=== PATIENT | male | born 1955 | race Caucasian/White ===

== ENCOUNTER → 2017-07-18 | Outpatient (CLI) | payer OTHER ==
[~2017-07-18] MED LIST: ALBU1AER9 INH; AMT10 PO; ANSHCCR/ TOP; ATV/1 PO; CHOL400C7 PO; COEN1CAP28 PO; CRFL PO; CRS/10 PO; CYCL10TA6 PO; DEXT5LIQ23 PO; FLVHFA110 INH; HYDR12.56 PO; MULTTAB PO; NXM/40 PO; PSEU60TA80 PO; PSYL55.43 PO; RANI300T2 PO; VITA400C15 PO
--- NOTE | 2017-07-18 11:40 | DIAGNOSTIC IMAGING REPORT ---
(BARIUM SWALLOW) ESOPHAGUS CLINICAL HISTORY: Chest discomfort after eating. Reflux. COMPARISON STUDY: Upper GI series 03/13/2009. FLUOROSCOPY TIME: 1 minute.. FINDINGS: 21 fluoroscopic spot images submitted. The patient swallowed barium without difficulty. The esophagus is normal in course, caliber, and motility. No hiatus hernia. No gastroesophageal reflux. The contours of the hypopharynx are within normal limits. The barium tablet passed without difficulty. IMPRESSION: Normal barium swallow. Electronically signed by: Oneal Zavaleta M.D. 07/18/2017 11:38 AM Dictated Date/Time: 07/18/2017 11:35 AM
== END ==
LOC: C.RAD 10:48
PROVIDERS: ATTEND Nurse Practitioner Family
DX: K20.9 Esophagitis, unspecified (principal); R07.89 Other chest pain

== ENCOUNTER → 2017-08-06 | Outpatient (CLI) | payer OTHER ==
--- NOTE | 2017-08-06 14:03 | DIAGNOSTIC IMAGING REPORT ---
R KNEE 4 OR MORE VIEWS CLINICAL HISTORY: BURSITIS OF RIGHT KNEE pain COMPARISON: None. DISCUSSION: The bones and joint spaces appear intact. There is no evidence of fracture, dislocation or bony disease. There is no evidence for soft tissue swelling. IMPRESSION: Negative study. The above report was generated using voice recognition software. It may contain grammatical, syntax or spelling errors. Electronically signed by: Trung Reddy M.D. 08/06/2017 2:01 PM Dictated Date/Time: 08/06/2017 2:01 PM
== END | disposition home or self-care (01) ==
LOC: C.LAB 13:41
PROVIDERS: ATTEND Family Medicine
DX: M70.51 Other bursitis of knee, right knee (principal)

== ENCOUNTER 2022-01-12 14:16 | Inpatient (IN) ==
[2022-01-12] MEDS ORDERED: SODIUM CHLORIDE 0.9% 1000ML 1,000 ML IV ONE (14:51)
--- NOTE | 2022-01-12 14:55 | Emergency Department Note ---
Impression & Plan Acute hyponatremia, Back pain, Lower urinary tract symptoms (LUTS) ED Provider Note NAME: PHANI FRANCISCO AGE: 66 SEX: M : 1955 ARRIVES VIA: Walk-In INFORMANT: Patient ED PROVIDER(S): Te Barker DO CHIEF COMPLAINT: pelvic pain HPI: Patient is a 66-year-old male with a past medical history of ankylosing spondylitis that presents the ER for pain in his rectum which he feels as though it is radiating up anteriorly into his lower pelvic/abdomen region. He denies any nausea or vomiting with this. This started about 10 days ago. He saw his PCP who placed him on Cipro. He took this for 3 days and he started having shaking consequently he stopped it. He was not restarted on any medications. He denies any pain with bowel movements. He does have trouble starting and stopping stream which is new but no other dysuria, urgency, or frequency. No other exacerbating or remitting factors. He notes he did not sleep last night as the pain was severe in his back. ROS: See above HPI for pertinent positives & negatives. A total of 10 systems reviewed and were otherwise negative. PAST MEDICAL HISTORY:See Below PAST SURGICAL HISTORY:See Below FAMILY HISTORY:See Below SOCIAL HISTORY:See Below HOME MEDICATIONS:See Below ALLERGIES:See Below VITALS:See Below PHYSICAL EXAMINATION: GENERAL: Sitting up in bed, alert, well appearing, well nourished, no distress, non-toxic EYE EXAM: normal conjunctiva. OROPHARYNX: mucous membranes are moist NECK: supple, no nuchal rigidity, no adenopathy, non-tender LUNGS: Clear to auscultation. Normal chest wall mechanics HEART: no murmurs, S1 normal and S2 normal ABDOMEN: abdomen soft, non-tender, normo-active bowel sounds, no masses, no rebound or guarding. : Normal external genitalia. Testicles are nontender. No penile drainage or discharge. UPPER EXTREMITIES: upper extremities are grossly normal. LOWER EXTREMITIES: No pitting edema. NEURO EXAM: Normal sensorium, cranial nerves II-XII grossly intact, normal speech, no gross weakness of arms, no gross weakness of legs. MEDICAL DECISION MAKING: Patient is an anxious 66-year-old male who presents ER for above-stated complaint. IV was established blood work was obtained. Labs show no significant leukocytosis. No anemia. BMP with him moderate hyponatremia 128 down from 138. Hypokalemia 3.2. LFTs bilirubin was unremarkable. Lipase was normal. UA was clean. He has recently on antibiotics and took [address] abdomen pelvis shows inflammation around the bladder as well as the kidneys. Question if this is a pyelonephritis which is partially treated giving us a sterile urine. Cannot be certain at this point. Given 2 g of Rocephin. He was concerned with the pain that he was having last night and he was unable to sleep. He was given IV Dilaudid. I discussed with him at bedside and he would prefer to stay at this point discussed with Dr. Weller from the hospital service. Triage Nursing notes reviewed. Limited review of prior medical records performed Vital Signs: reviewed and remarkable for HTN Differential diagnosis: Differential diagnoses includes but is not limited to gastritis, peptic ulcer disease, GERD, gallbladder disease, pancreatitis, small bowel obstruction, acute coronary syndrome, pericarditis, ischemic bowel, irritable bowel disease, irritable bowel syndrome, appendicitis, diverticulitis, malignancy, hernia, urinary tract infection, torsion, perforation, trauma, infectious. ER treatment provided: See below Diagnostics interpreted by me: ECG: none Cardiac Monitoring: An order was placed for continuous cardiac monitoring. The monitor shows a rate of 60 with sinus rhythm. Laboratory studies: As stated above and show below. Imaging studies: CT from pelvis as described above Consultation(s): Discussed with Dr. Lopez for further evaluation Procedures: none Critical Care: None Past Med/Surg History Medical History [facility] arthritis GERD (gastroesophageal reflux disease) Hyperlipidemia Hypertension Right calf pain Surgical History H/O meniscectomy of right knee Family History Other Cancer Heart disease Social History Smoking Status: Never smoker Preferred Language: Pashto Feels Safe at Home: Yes Allergies Allergies Allergy/AdvReac Type Severity Reaction Status Date / Time morphine Allergy Intermediate GI SYMPTOMS Verified 08/22/21 23:17 Sulfa (Sulfonamide Allergy Intermediate RASH Verified 08/22/21 23:17 Antibiotics) codeine AdvReac Intermediate NAUSEA/VOMI Verified 08/22/21 23:17 TING Home Meds Home Medications Medication Instructions Recorded Confirmed ascorbic acid (vitamin C) 500 mg 500 mg PO QDL 06/16/20 01/12/22 tablet (Vitamin C) celecoxib 200 mg capsule 200 mg PO QAM 06/16/20 01/12/22 famotidine 40 mg tablet 20 mg PO AMHS 06/16/20 01/12/22 hydrochlorothiazide 12.5 mg capsule 12.5 mg PO QAM 06/16/20 01/12/22 multivitamin 1 tab PO QDL 06/16/20 01/12/22 rosuvastatin 10 mg tablet 10 mg PO HS 06/16/20 01/12/22 lorazepam 1 mg tablet 0.5 - 1 mg PO BID PRN Anxiety 08/22/21 01/12/22 tramadol 50 mg tablet 50 mg PO Q6H PRN Pain, Severe 08/22/21 01/12/22 adalimumab 40 mg/0.8 mL 40 mg subcut .EVERY 14 DAYS 01/12/22 01/12/22 subcutaneous pen kit (Humira Pen) azelastine 137 mcg (0.1 %) nasal See Rx Instructions .Route .COMPLEX 01/12/22 01/12/22 spray aerosol bisacodyl 5 mg tablet 5 mg PO DAILY PRN Constipation 01/12/22 01/12/22 cholecalciferol (vitamin D3) 50 50 mcg PO DAILY 01/12/22 01/12/22 mcg (2,000 unit) tablet (Vitamin D3) diclofenac sodium 1 % topical gel 2 g topical QID 01/12/22 01/12/22 duloxetine 30 mg capsule,delayed 30 mg PO QAM 01/12/22 01/12/22 release esomeprazole magnesium 20 mg 20 mg PO DAILYBB 01/12/22 01/12/22 capsule,delayed release ibuprofen 125 mg-acetaminophen 250 2 tab PO HS 01/12/22 01/12/22 mg tablet (Advil Dual Action) levothyroxine 112 mcg tablet 112 mcg PO DAILYBB 01/12/22 01/12/22 mometasone 50 mcg/actuation nasal 2 spray intranasal BID 01/12/22 01/12/22 spray trazodone 50 mg tablet 50 mg PO HS 01/12/22 01/12/22 Results & Data (ED) Vital Signs Vital Signs - 24 hr 01/12/22 14:30 01/12/22 15:20 01/12/22 15:51 Temperature 37.0 C Temperature Source Temporal Artery Scan Pulse Rate 55 L 62 Pulse Rate [Right] 60 Respiratory Rate 18 18 18 Respiratory Effort / Characteristics Non-Labored Spontaneous Respiratory Depth Normal Respiratory Pattern Regular Blood Pressure 155/71 H Blood Pressure [Right Arm] 147/64 H Blood Pressure Mean 99 Blood Pressure Mean [Right Arm] 91 Pulse Oximetry 97 100 98 Oxygen Delivery Method Room Air Room Air Room Air Sepsis Recent Fever Within 48 Hours No Sepsis New/Unexplained Change in Mental Status No Sepsis Action Taken by Nursing No Action Required Laboratory Data Result diagrams: 01/12/22 15:02 01/12/22 15:02 Lab Results 01/12/22 01/12/22 01/12/22 Range/Units 15:02 15:02 15:02 WBC 5.55 (4.8-10.8) K/ul RBC 4.33 L (4.63-6.08) M/uL Hgb 13.6 L (14.0-18.0) g/dl Hct 37.5 L (40.1-51.0) % MCV 86.6 (80.0-100.0) fL MCH 31.4 (25.0-34.0) pg MCHC 36.3 H (32.0-36.0) g/dL RDW Std Deviation 41.6 (36.4-46.3) fL RDW Coeff of Ravi 13.3 (11.5-14.5) % Plt Count 166 (130-400) K/uL MPV 10.7 (9.4-12.4) fL Immature Gran % (Auto) 0.4 % Neut % (Auto) 61.8 % Lymph % (Auto) 25.6 % [place] % (Auto) 10.6 % Eos % (Auto) 0.9 % Baso % (Auto) 0.7 % Neut # (Auto) 3.43 (1.4-6.5) K/uL Lymph # (Auto) 1.42 (1.2-3.4) K/uL [place] # (Auto) 0.59 (0.24-0.82) K/uL Eos # (Auto) 0.05 (0-0.50) K/uL Baso # (Auto) 0.04 (0-0.2) K/uL Immature Gran # (Auto) 0.02 (0.00-0.02) K/uL Sodium 128 L (136-145) mmol/L Potassium 3.2 L (3.5-5.1) mmol/L Chloride 93 L (98-107) mmol/L Carbon Dioxide 28 (21-32) mmol/L Anion Gap 7 (3-11) BUN 10 (6-23) mg/dl Creatinine 0.82 (0.6-1.4) mg/dl Est Cr Clr Drug Dosing 90.4 ml/min Est GFR ( Amer) 106.1 ml/min Est GFR (Non-Af Amer) 91.5 ml/min BUN/Creatinine Ratio 12.2 (10-20) Glucose 115 H (70-99(Fasting)) mg/dl Calcium 9.4 (8.5-10.1) mg/dl Magnesium (1.7-2.4) mg/dl Total Bilirubin 0.8 (0.2-1.0) mg/dl AST 15 (13-39) U/L ALT 15 (7-52) U/L Alkaline Phosphatase 63 (34-104) U/L Total Protein 6.8 (6.0-8.3) gm/dl Albumin 4.6 (3.4-5.0) gm/dl Globulin 2.2 L (2.5-4.0) gm/dl Albumin/Globulin Ratio 2.1 H (0.9-2) Lipase 19 (11-82) U/L Urine Color Yellow Urine Appearance Clear (Clear) Urine pH 7.0 (4.5-7.5) Ur Specific [place] 1.006 (1.000-1.030) Urine Protein Negative (Negative) Urine Glucose (UA) Negative (Negative) Urine Ketones Negative (Negative) Urine Blood Negative (Negative) Urine Nitrite Negative (Negative) Urine Bilirubin Negative (Negative) Urine Urobilinogen Negative (Negative) Ur Leukocyte Esterase Negative (Negative) 01/12/22 Range/Units 15:02 WBC (4.8-10.8) K/ul RBC (4.63-6.08) M/uL Hgb (14.0-18.0) g/dl Hct (40.1-51.0) % MCV (80.0-100.0) fL MCH (25.0-34.0) pg MCHC (32.0-36.0) g/dL RDW Std Deviation (36.4-46.3) fL RDW Coeff of Ravi (11.5-14.5) % Plt Count (130-400) K/uL MPV (9.4-12.4) fL Immature Gran % (Auto) % Neut % (Auto) % Lymph % (Auto) % [place] % (Auto) % Eos % (Auto) % Baso % (Auto) % Neut # (Auto) (1.4-6.5) K/uL Lymph # (Auto) (1.2-3.4) K/uL [place] # (Auto) (0.24-0.82) K/uL Eos # (Auto) (0-0.50) K/uL Baso # (Auto) (0-0.2) K/uL Immature Gran # (Auto) (0.00-0.02) K/uL Sodium (136-145) mmol/L Potassium (3.5-5.1) mmol/L Chloride (98-107) mmol/L Carbon Dioxide (21-32) mmol/L Anion Gap (3-11) BUN (6-23) mg/dl Creatinine (0.6-1.4) mg/dl Est Cr Clr Drug Dosing ml/min Est GFR ( Amer) ml/min Est GFR (Non-Af Amer) ml/min BUN/Creatinine Ratio (10-20) Glucose (70-99(Fasting)) mg/dl Calcium (8.5-10.1) mg/dl Magnesium 1.8 (1.7-2.4) mg/dl Total Bilirubin (0.2-1.0) mg/dl AST (13-39) U/L ALT (7-52) U/L Alkaline Phosphatase (34-104) U/L Total Protein (6.0-8.3) gm/dl Albumin (3.4-5.0) gm/dl Globulin (2.5-4.0) gm/dl Albumin/Globulin Ratio (0.9-2) Lipase (11-82) U/L Urine Color Urine Appearance (Clear) Urine pH (4.5-7.5) Ur Specific [place] (1.000-1.030) Urine Protein (Negative) Urine Glucose (UA) (Negative) Urine Ketones (Negative) Urine Blood (Negative) Urine Nitrite (Negative) Urine Bilirubin (Negative) Urine Urobilinogen (Negative) Ur Leukocyte Esterase (Negative) Administered Medications Discontinued Medications Sodium Chloride (Nss 1000ml) 1,000 mls @ 999 mls/hr IV .Q1H1M ONE Stop: 01/12/22 15:51 Last Infusion: 01/12/22 16:05 Dose: 0 mls/hr Documented By: Admin: 01/12/22 15:05 Dose: 999 mls/hr Documented By: QGV Ceftriaxone Sodium (Rocephin) 2,000 mg in 70 mls @ 140 mls/hr IV NOW STA Stop: 01/12/22 17:25 Last Infusion: 01/12/22 18:17 Dose: 0 mls/hr Documented By: Admin: 01/12/22 17:16 Dose: 140 mls/hr Documented By: QGV Ioversol (Ioversol 350 Mg 100ml Prefilled Syringe) 89 ml IV ONCE ONE Stop: 01/12/22 16:13 Last Admin: 01/12/22 16:12 Dose: 89 ml Documented By: SOFIAK Ondansetron HCl (Ondansetron Inj 2 Mg/Ml 2 Ml Vial) 4 mg IV NOW STA Stop: 01/12/22 17:28 Last Admin: 01/12/22 17:31 Dose: Not Given Documented By: FREEDOM Potassium Chloride (Potassium Chloride Crtab 20 Meq Tabcr) 40 meq PO NOW STA Stop: 01/12/22 16:58 Last Admin: 01/12/22 17:16 Dose: 40 meq Documented By: QGV Tramadol HCl (Tramadol Hcl 50 Mg Tablet) 50 mg PO NOW STA Stop: 01/12/22 17:24 Last Admin: 01/12/22 17:31 Dose: Not Given Documented By: FREEDOM Imaging Data Radiologist's Impression: Abdomen/Pelvis CT 01/12/22 14:[address] WITH IV CONTRAST CT DOSE: 492.41 mGy.cm HISTORY: lower pelvic pain/ prostate pain sent by pcp TECHNIQUE: Multiaxial CT images of the abdomen and pelvis were performed following the use of intravenous contrast. A dose lowering technique was util ized adhering to the principles of ALARA. COMPARISON STUDY: Abdomen and pelvis CT 05/15/2008. FINDINGS: The lung bases are clear. No pneumoperitoneum. No pneumatosis. Mild to moderate disc space narrowing at L5-S1. No fractures within the visualized osseous structures. There is a small fat-containing umbilical hernia. The liver, gallbladder, spleen, adrenal glands, and pancreas unremarkable. The main portal vein is patent. Normal caliber abdominal aorta with mild calcified plaque. No retroperitoneal or pelvic lymphadenopathy. There is a 9 mm hypodense lesion within the upper pole of the right kidney. This is technically too small to characterize but favors a cyst. There is mild bilateral perinephric edema/fat stranding with subtle heterogeneous enhancement within the kidneys. No hydronephrosis. Mild bladder wall thickening with adjacent fat stranding. This favors a mild cystitis. No bowel wall thickening or obstruction. Colonic diverti culosis. No evidence for acute diverticulitis. Moderate well-formed stool within the majority of the colon. Normal appendix. IMPRESSION: 1. Mild bladder wall thickening with adjacent fat stranding. This likely represents a mild cystitis. Recommend correlation with urinalysis. 2. Mild bilateral perinephric edema/fat stranding with subtle heterogeneous enhancement within the kidneys. This raises the possibility of a superimposed pyelonephritis. This can also be assessed with a urinalysis. 3. No bowel wall thickening or obstruction. 4. Normal appendix. 5. Colonic diverticulosis. No evidence for acute diverticulitis. ACT 112: Negative or not required by law. Electronically signed by: Oneal Zavaleta M.D. 01/12/2022 4:28 PM Discharge Plan Visit Data Chief Complaint: Groin Pain Stated Complaint: GROIN PAIN, ED Provider: Te Barker Discharge Problem: Acute hyponatremia, Back pain, Lower urinary tract symptoms (LUTS) Forms Stand Alone Forms: [employer] Prescriptions Prescriptions: No Action tramadol 50 mg tablet 50 mg PO Q6H PRN (Reason: Pain, Severe) lorazepam 1 mg tablet 0.5 - 1 mg PO BID PRN (Reason: Anxiety) duloxetine 30 mg capsule,delayed release(DR/EC) 30 mg PO QAM trazodone 50 mg tablet 50 mg PO HS esomeprazole magnesium 20 mg capsule,delayed release(DR/EC) 20 mg PO DAILYBB cholecalciferol (vitamin D3) [Vitamin D3] 50 mcg (2,000 unit) Tablet 50 mcg PO DAILY mometasone 50 mcg/actuation spray,non-aerosol 2 spray INTRANASAL BID Rx Instructions: 2 squirts each nostril ywic a day. May use in conjunction with Astelin spray Advil Dual Action 125-250 mg Tablet 2 tab PO HS levothyroxine 112 mcg tablet 112 mcg PO DAILYBB Rx Instructions: take at least 30 minutes prior to breakfast or other meds Humira Pen 40 mg/0.8 mL pen injector kit 40 mg SUBCUT .EVERY 14 DAYS azelastine 137 mcg (0.1 %) aerosol,spray See Rx Instructions .ROUTE .COMPLEX Rx Instructions: intranasally as directed bisacodyl 5 mg Tablet 5 mg PO DAILY PRN (Reason: Constipation) diclofenac sodium [Voltaren] 1 % Gel 2 g TOPICAL QID multivitamin Tablet 1 tab PO QDL celecoxib 200 mg capsule 200 mg PO QAM famotidine 40 mg tablet 20 mg PO AMHS Rx Instructions: 1/2 tablet dose ascorbic acid (vitamin C) [Vitamin C] 500 mg Tablet 500 mg PO QDL hydrochlorothiazide 12.5 mg capsule 12.5 mg PO QAM rosuvastatin 10 mg tablet 10 mg PO HS Referrals Referrals: Abhay Lopez MD [Primary Care Provider] -
[2022-01-12 15:23] LABS: Basophils # (auto) 0.04 K/uL (0-0.2); Basophils % (auto) 0.7 %; Eosinophils # (auto) 0.05 K/uL (0-0.50); Eosinophils % (auto) 0.9 %; Hematocrit (blood only) 37.5 % (40.1-51.0); Hemoglobin 13.6 g/dl (14.0-18.0); Immature Granulocytes # (auto) 0.02 K/uL (0.00-0.02); Immature Granulocytes % (auto) 0.4 %; Lymphocytes # (auto) 1.42 K/uL (1.2-3.4); Lymphocytes % (auto) 25.6 %; Mean Corpuscular Hemoglobin 31.4 pg (25.0-34.0); Mean Corpuscular Hgb Conc 36.3 g/dL (32.0-36.0); Mean Corpuscular Volume 86.6 fL (80.0-100.0); Mean Platelet Volume 10.7 fL (9.4-12.4); Monocytes # (auto) 0.59 K/uL (0.24-0.82); Monocytes % (auto) 10.6 %; Neutrophils # (auto) 3.43 K/uL (1.4-6.5); Neutrophils % (auto) 61.8 %; Platelet Count 166 K/uL (130-400); RDW Coefficient of Variation 13.3 % (11.5-14.5); RDW Standard Deviation 41.6 fL (36.4-46.3); Red Blood Count 4.33 M/uL (4.63-6.08); White Blood Count 5.55 K/ul (4.8-10.8)
[2022-01-12 15:30] LABS: Appearance Urine Clear (Clear); Bilirubin Urine Negative (Negative); Blood Urine Negative (Negative); Color Urine Yellow; Glucose Urine UA Negative (Negative); Ketones Urine Negative (Negative); Leukocyte Esterase Urine Negative (Negative); Nitrite Urine Negative (Negative); Protein Urine Negative (Negative); Specific Gravity Urine 1.006 (1.000-1.030); Urobilinogen Urine Negative (Negative)
[2022-01-12 15:44] LABS: Albumin Globulin Ratio 2.1 (0.9-2); Albumin Level 4.6 gm/dl (3.4-5.0); BUN Creatinine Ratio 12.2 (10-20); Bilirubin,Total 0.8 mg/dl (0.2-1.0); Calcium 9.4 mg/dl (8.5-10.1); Creatinine Clr Calc Pharmacy 90.4 ml/min; Est GFR (African American) 106.1 ml/min; Est GFR (Non-African American) 91.5 ml/min; Globulin 2.2 gm/dl (2.5-4.0); Potassium 3.2 mmol/L (3.5-5.1); Total Protein 6.8 gm/dl (6.0-8.3)
[2022-01-12] MEDS ORDERED: IOVERSOL 350 MG 100mL Prefilled Syringe IV ONE (16:12)
--- NOTE | 2022-01-12 16:31 | CT Scan Report ---
ABDOMEN AND PELVIS CT WITH IV CONTRAST CT DOSE: 492.41 mGy.cm HISTORY: lower pelvic pain/ prostate pain sent by pcp TECHNIQUE: Multiaxial CT images of the abdomen and pelvis were performed following the use of intrave nous contrast. A dose lowering technique was utilized adhering to the principles of ALARA. COMPARISON STUDY: Abdomen and pelvis CT 05/15/2008. FINDINGS: The lung bases are clear. No pneumoperitoneum. No pneumatosis. Mild to moderate disc space narrowing at L5-S1. No fractures within the visualized osseous structures. There is a small fat-conta ining umbilical hernia. The liver, gallbladder, spleen, adrenal glands, and pancreas unremarkable. Th e main portal vein is patent. Normal caliber abdominal aorta with mild calcified plaque. No retroperi toneal or pelvic lymphadenopathy. There is a 9 mm hypodense lesion within the upper pole of the right kidney. This is technically too small to characterize but favors a cyst. There is mild bilateral per inephric edema/fat stranding with subtle heterogeneous enhancement within the kidneys. No hydronephro sis. Mild bladder wall thickening with adjacent fat stranding. This favors a mild cystitis. No bowel wall thickening or obstruction. Colonic diverticulosis. No evidence for acute diverticulitis. Moderat e well-formed stool within the majority of the colon. Normal appendix. IMPRESSION: 1. Mild bladder wall thickening with adjacent fat stranding. This likely represents a mild cystitis. Recommend correlation with urinalysis. 2. Mild bilateral perinephric edema/fat stranding with subtle heterogeneous enhancement within the ki dneys. This raises the possibility of a superimposed pyelonephritis. This can also be assessed with a urinalysis. 3. No bowel wall thickening or obstruction. 4. Normal appendix. 5. Colonic diverticulosis. No evidence for acute diverticulitis. ACT 112: Negative or not required by law. Electronically signed by: Oneal Zavaleta M.D. 01/12/2022 4:28 PM
[2022-01-12] MEDS ORDERED: cefTRIAXone SODIUM 2,000 MG/70 ML BAG IV STA (16:56)
[2022-01-12] MEDS ORDERED: POTASSIUM CHLORIDE CRTAB 20 MEQ TABCR PO STA (16:57)
[2022-01-12] MEDS ORDERED: ONDANSETRON INJ 2 MG/ML 2 ML VIAL IV STA ×2 (17:21→17:27)
[2022-01-12] MEDS ORDERED: traMADol HCL 50 MG TABLET PO STA (17:23)
[2022-01-12] MEDS ORDERED: HYDROmorphone INJ 0.5 MG/0.5 ML SYR IV STA (17:27)
--- NOTE | 2022-01-12 18:20 | History & Physical Report ---
Date of Service January 12, 2022 Assessment & Plan (1) Cystitis: Plan: Poss. partially treated pyelonephritis Pt presents with severe suprapubic tenderness Previously treated with ciprofloxacin, took for 3 days UA currently negative, however CT abdomen pelvis concerning for cystitis, pyelonephritis In the ED patient started on ceftriaxone, will continue Await urine culture Of note, patient should not be on fluoroquinolone in addition to Celebrex, this was discussed with his corsetier as outpatient Ankylosing spondylitis -Follows with rheumatology, Dr. Vanegas -Started Humira in November, next dose planned for January 16 -July need to further discuss with rheumatology if patient can continue this as planned Hyponatremia -Current sodium 128 -Previous sodium 138 back in July 2021 -Patient is on HCTZ, will hold -Obtain urine osmolality and urine sodium -Received normal saline IV fluids in ED -Recheck BMP in the morning Hypokalemia -Replace and monitor Hypothyroidism Continue home levothyroxine 112 MCG Check TSH, T4 HLD - cont. home statin Anxiety/ Depression -Patient just started on Cymbalta -Per it has been helpful, and wish to continue this medication RAHEEM on CPAP - to bring home cpap History of Present Illness Chief Complaint: groin pain, urinary discomfort Primary Care Provider: Abhay Lopez MD Mr. Couch is a 66 yo M w/ hypothyroidism, hyperlipidemia, sleep apnea on CPAP, GERD, ankylosing spondylitis on Humira, who presents with groin pain, and urinary symptoms. Patient first had some pelvic discomfort and difficulty with urination about a week ago. At that time he was prescribed p.o. ciprofloxacin. He took ciprofloxacin for 3 days, and then developed tremors. Therefore he stopped the medication. It was also discussed with his corsetier, Dr. 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 Patient follows with rheumatology for ankylosing spondylitis, and recently started on Humira. He had his first injection in November, and he is due January 16 again. He was then off antibiotics, however now developed severe "groin pain". Denies any fevers or chills, chest pain shortness of breath, abdominal pain, nausea vomiting or diarrhea. He has difficulty with starting urination. In the ED UA was obtained and not consistent with UTI, however CT abdomen pelvis was also obtained and is concerning for cystitis, pyelonephritis. Patient was started on IV ceftriaxone. In the ED patient was also found to have low sodium level at 128 and he was given IV normal saline. Lastly patient does have anxiety/depression and recently was started on Cymbalta. Per , this medication has been helpful and she would like us to continue this med while inpt. Allergies Allergy/AdvReac Type Severity Reaction Status Date / Time morphine Allergy Intermediate GI SYMPTOMS Verified 08/22/21 23:17 Sulfa (Sulfonamide Allergy Intermediate RASH Verified 08/22/21 23:17 Antibiotics) codeine AdvReac Intermediate NAUSEA/VOMI Verified 08/22/21 23:17 TING Home Medications Medication Instructions Recorded Confirmed Type ascorbic acid (vitamin C) 500 mg 500 mg PO QDL 06/16/20 01/12/22 History tablet (Vitamin C) celecoxib 200 mg capsule 200 mg PO QAM 06/16/20 01/12/22 History famotidine 40 mg tablet 20 mg PO AMHS 06/16/20 01/12/22 History hydrochlorothiazide 12.5 mg capsule 12.5 mg PO QAM 06/16/20 01/12/22 History multivitamin 1 tab PO QDL 06/16/20 01/12/22 History rosuvastatin 10 mg tablet 10 mg PO HS 06/16/20 01/12/22 History lorazepam 1 mg tablet 0.5 - 1 mg PO BID PRN Anxiety 08/22/21 01/12/22 History tramadol 50 mg tablet 50 mg PO Q6H PRN Pain, Severe 08/22/21 01/12/22 History adalimumab 40 mg/0.8 mL 40 mg subcut .EVERY 14 DAYS 01/12/22 01/12/22 History subcutaneous pen kit (Humira Pen) azelastine 137 mcg (0.1 %) nasal See Rx Instructions .Route .COMPLEX 01/12/22 01/12/22 History spray aerosol bisacodyl 5 mg tablet 5 mg PO DAILY PRN Constipation 01/12/22 01/12/22 History cholecalciferol (vitamin D3) 50 50 mcg PO DAILY 01/12/22 01/12/22 History mcg (2,000 unit) tablet (Vitamin D3) diclofenac sodium 1 % topical gel 2 g topical QID 01/12/22 01/12/22 History duloxetine 30 mg capsule,delayed 30 mg PO QAM 01/12/22 01/12/22 History release esomeprazole magnesium 20 mg 20 mg PO DAILYBB 01/12/22 01/12/22 History capsule,delayed release ibuprofen 125 mg-acetaminophen 250 2 tab PO HS 01/12/22 01/12/22 History mg tablet (Advil Dual Action) levothyroxine 112 mcg tablet 112 mcg PO DAILYBB 01/12/22 01/12/22 History mometasone 50 mcg/actuation nasal 2 spray intranasal BID 01/12/22 01/12/22 History spray trazodone 50 mg tablet 50 mg PO HS 01/12/22 01/12/22 History Past Med/Surg History Medical History [facility] arthritis GERD (gastroesophageal reflux disease) Hyperlipidemia Hypertension Right calf pain Surgical History H/O meniscectomy of right knee Family History Other Cancer Heart disease Social History Smoking Status: Never smoker Preferred Language: Japanese Feels Safe at Home: Yes Review of Systems Review of Systems: All systems reviewed & are unremarkable except as noted in HPI & below Physical Exam Constitutional: WD/WN, vitals as above Eyes: PERRL, conjunctivae normal, anicteric sclerae ENMT: external ear and nose normal, oropharynx normal Neck: trachea midline, no thyromegaly Respiratory: normal respiratory effort, lungs clear to auscultation Cardiovascular: RRR, no murmur, no edema Chest (Breasts): Chest: normal inspection of chest Gastrointestinal (Abdomen): normal bowel sounds, soft, nontender, no hepatosplenomegaly (+ suprapubic tenderness) Musculoskeletal: no cyanosis or clubbing, extremities motor strength 5/5 Skin: no rashes, warm and dry Neurologic: PERRL, EOMI, accommodation nl, no face palsy, no dysarthria Psychiatric: A+Ox3, euthymic affect Genitourinary: no CVA tenderness (+ suprapubic tenderness) Lymphatic: no lymphedema Results & Data Results & Data ([facility]) Vital Signs (Past 12 Hours) Vital Signs Temp Pulse Pulse Resp BP BP Pulse Ox 01/12/22 15:51 60 18 147/64 H 98 01/12/22 15:20 62 18 100 01/12/22 14:30 37.0 C 55 L 18 155/71 H 97 O2 Del Method 01/12/22 15:51 Room Air 01/12/22 15:20 Room Air 01/12/22 14:30 Room Air Laboratory Results 01/12/22 01/12/22 01/12/22 Range/Units 15:02 15:02 15:02 WBC (4.8-10.8) K/ul RBC (4.63-6.08) M/uL Hgb (14.0-18.0) g/dl Hct (40.1-51.0) % MCV (80.0-100.0) fL MCH (25.0-34.0) pg MCHC (32.0-36.0) g/dL RDW Std Deviation (36.4-46.3) fL RDW Coeff of Ravi (11.5-14.5) % Plt Count (130-400) K/uL MPV (9.4-12.4) fL Immature Gran % (Auto) % Neut % (Auto) % Lymph % (Auto) % [place] % (Auto) % Eos % (Auto) % Baso % (Auto) % Neut # (Auto) (1.4-6.5) K/uL Lymph # (Auto) (1.2-3.4) K/uL [place] # (Auto) (0.24-0.82) K/uL Eos # (Auto) (0-0.50) K/uL Baso # (Auto) (0-0.2) K/uL Immature Gran # (Auto) (0.00-0.02) K/uL Sodium 128 L (136-145) mmol/L Potassium 3.2 L (3.5-5.1) mmol/L Chloride 93 L (98-107) mmol/L Carbon Dioxide 28 (21-32) mmol/L Anion Gap 7 (3-11) BUN 10 (6-23) mg/dl Creatinine 0.82 (0.6-1.4) mg/dl Est Cr Clr Drug Dosing 90.4 ml/min Est GFR ( Amer) 106.1 ml/min Est GFR (Non-Af Amer) 91.5 ml/min BUN/Creatinine Ratio 12.2 (10-20) Glucose 115 H (70-99(Fasting)) mg/dl Calcium 9.4 (8.5-10.1) mg/dl Magnesium 1.8 (1.7-2.4) mg/dl Total Bilirubin 0.8 (0.2-1.0) mg/dl AST 15 (13-39) U/L ALT 15 (7-52) U/L Alkaline Phosphatase 63 (34-104) U/L Total Protein 6.8 (6.0-8.3) gm/dl Albumin 4.6 (3.4-5.0) gm/dl Globulin 2.2 L (2.5-4.0) gm/dl Albumin/Globulin Ratio 2.1 H (0.9-2) Lipase 19 (11-82) U/L Urine Color Yellow Urine Appearance Clear (Clear) Urine pH 7.0 (4.5-7.5) Ur Specific [place] 1.006 (1.000-1.030) Urine Protein Negative (Negative) Urine Glucose (UA) Negative (Negative) Urine Ketones Negative (Negative) Urine Blood Negative (Negative) Urine Nitrite Negative (Negative) Urine Bilirubin Negative (Negative) Urine Urobilinogen Negative (Negative) Ur Leukocyte Esterase Negative (Negative) 01/12/22 Range/Units 15:02 WBC 5.55 (4.8-10.8) K/ul RBC 4.33 L (4.63-6.08) M/uL Hgb 13.6 L (14.0-18.0) g/dl Hct 37.5 L (40.1-51.0) % MCV 86.6 (80.0-100.0) fL MCH 31.4 (25.0-34.0) pg MCHC 36.3 H (32.0-36.0) g/dL RDW Std Deviation 41.6 (36.4-46.3) fL RDW Coeff of Ravi 13.3 (11.5-14.5) % Plt Count 166 (130-400) K/uL MPV 10.7 (9.4-12.4) fL Immature Gran % (Auto) 0.4 % Neut % (Auto) 61.8 % Lymph % (Auto) 25.6 % [place] % (Auto) 10.6 % Eos % (Auto) 0.9 % Baso % (Auto) 0.7 % Neut # (Auto) 3.43 (1.4-6.5) K/uL Lymph # (Auto) 1.42 (1.2-3.4) K/uL [place] # (Auto) 0.59 (0.24-0.82) K/uL Eos # (Auto) 0.05 (0-0.50) K/uL Baso # (Auto) 0.04 (0-0.2) K/uL Immature Gran # (Auto) 0.02 (0.00-0.02) K/uL Sodium (136-145) mmol/L Potassium (3.5-5.1) mmol/L Chloride (98-107) mmol/L Carbon Dioxide (21-32) mmol/L Anion Gap (3-11) BUN (6-23) mg/dl Creatinine (0.6-1.4) mg/dl Est Cr Clr Drug Dosing ml/min Est GFR ( Amer) ml/min Est GFR (Non-Af Amer) ml/min BUN/Creatinine Ratio (10-20) Glucose (70-99(Fasting)) mg/dl Calcium (8.5-10.1) mg/dl Magnesium (1.7-2.4) mg/dl Total Bilirubin (0.2-1.0) mg/dl AST (13-39) U/L ALT (7-52) U/L Alkaline Phosphatase (34-104) U/L Total Protein (6.0-8.3) gm/dl Albumin (3.4-5.0) gm/dl Globulin (2.5-4.0) gm/dl Albumin/Globulin Ratio (0.9-2) Lipase (11-82) U/L Urine Color Urine Appearance (Clear) Urine pH (4.5-7.5) Ur Specific [place] (1.000-1.030) Urine Protein (Negative) Urine Glucose (UA) (Negative) Urine Ketones (Negative) Urine Blood (Negative) Urine Nitrite (Negative) Urine Bilirubin (Negative) Urine Urobilinogen (Negative) Ur Leukocyte Esterase (Negative) Diagnostic Findings CT abd/pelvis IMPRESSION: 1. Mild bladder wall thickening with adjacent fat stranding. This likely represents a mild cystitis. Recommend correlation with urinalysis. 2. Mild bilateral perinephric edema/fat stranding with subtle heterogeneous enhancement within the kidneys. This raises the possibility of a superimposed pyelonephritis. This can also be assessed with a urinalysis. 3. No bowel wall thickening or obstruction. 4. Normal appendix. 5. Colonic diverticulosis. No evidence for acute diverticulitis. Code Status & VTE Plan VTE Prophylaxis Plan VTE Prophylaxis will be ordered: Yes
[2022-01-12] MEDS: ACETAMINOPHEN 325 MG TAB PO PRN (22:59)
[2022-01-12] MEDS: FAMOTIDINE 20 MG TAB PO SCH (22:59)
[2022-01-12] MEDS: ROSUVASTATIN CALCIUM 10 MG TAB PO SCH (22:59)
[2022-01-13] MEDS: LEVOTHYROXINE SODIUM 112 MCG TABLET PO SCH (05:49)
[2022-01-13 06:00] LABS: Hematocrit (blood only) 37.7 % (40.1-51.0); Hemoglobin 13.5 g/dl (14.0-18.0); Mean Corpuscular Hemoglobin 31.3 pg (25.0-34.0); Mean Corpuscular Hgb Conc 35.8 g/dL (32.0-36.0); Mean Corpuscular Volume 87.5 fL (80.0-100.0); Mean Platelet Volume 10.4 fL (9.4-12.4); Platelet Count 151 K/uL (130-400); RDW Coefficient of Variation 13.4 % (11.5-14.5); RDW Standard Deviation 42.9 fL (36.4-46.3); Red Blood Count 4.31 M/uL (4.63-6.08); White Blood Count 4.19 K/ul (4.8-10.8)
[2022-01-13 06:33] LABS: BUN Creatinine Ratio 8.9 (10-20); Calcium 9.5 mg/dl (8.5-10.1); Creatinine Clr Calc Pharmacy 92.7 ml/min; Est GFR (African American) 107.7 ml/min; Est GFR (Non-African American) 92.9 ml/min; Magnesium 1.9 mg/dl (1.7-2.4); Phosphorus 3.8 mg/dl (2.5-4.9); Potassium 4.1 mmol/L (3.5-5.1)
[2022-01-13 06:35] LABS: Thyroid Stimulating Hormone 0.106 uIu/ml (0.300-4.500)
[2022-01-13] MEDS: CeleBREX 200 MG CAP PO SCH (07:20)
[2022-01-13] MEDS: ACETAMINOPHEN 325 MG TAB PO PRN (07:20)
[2022-01-13] MEDS: FAMOTIDINE 20 MG TAB PO SCH ×2 (07:20→20:41)
[2022-01-13] MEDS: DULoxetine HCL 30 MG CAP PO SCH (07:21)
[2022-01-13 07:27] LABS: T4 Free Thyroxine 1.23 ng/dl (0.61-1.60)
[2022-01-13] MEDS ORDERED: HYDROCODONE/ACETAMOPHEN 5/325MG TAB PO ONE (10:22)
[2022-01-13] MEDS ORDERED: HYDROmorphone INJ 0.5 MG/0.5 ML SYR IV STA (11:52)
[2022-01-13] MEDS ORDERED: ONDANSETRON INJ 2 MG/ML 2 ML VIAL IV PRN (12:30)
[2022-01-13] MEDS ORDERED: HYDROmorphone INJ 0.5 MG/0.5 ML SYR IV PRN (13:49)
--- NOTE | 2022-01-13 13:51 | Hospitalist Progress Note ---
Date of Service January 13, 2022 Assessment & Plan (1) Cystitis: Plan: Poss. partially treated pyelonephritis Pt presented with severe suprapubic tenderness Previously treated with ciprofloxacin, took for 3 days UA currently negative, however CT abdomen pelvis concerning for cystitis, pyelonephritis Urine culture shows no growth. Plan; Continue on ceftriaxone for now. He had antibiotics prior to urinalysis but has symptoms and imaging consistent with UTI. -Started on Tylenol, [place] and Dilaudid for mild to moderate and severe pain. -Plan to switch over to oral antibiotics on discharge. Ankylosing spondylitis -Follows with rheumatology, Dr. Vanegas -Started Humira in November, next dose planned for January 16 Hyponatremia likely secondary to hydrochlorothiazide -Improved to 136 -Patient is on HCTZ, will hold -Received normal saline IV fluids in ED Hypokalemia -Replace and monitor Hypothyroidism Suppressed TSH with normal T4. Will decrease his dose to 100 mcg on discharge. Follow-up as outpatient HLD - cont. home statin Anxiety/ Depression -Patient just started on Cymbalta -Per it has been helpful, and wish to continue this medication RAHEEM on CPAP - to bring home cpap Admission and Anticipated Discharge Date Admission Date: January 12, 2022 Subjective Patient seen and examined at bedside. He reports pain in perineal region. He also complains of discomfort while urinating. Review of Systems Review of Systems: All systems reviewed & are unremarkable except as noted in Subjective Physical Exam Physical Exam: Constitutional: WD/WN, vitals as above, NAD, sitting up in bed, pleasant, conversing easily Respiratory: normal respiratory effort, lungs clear to auscultation, no wheeze, rales, rhonchi. Normal insp/exp effort, no accessory muscle use Cardiovascular: RRR, no murmur, no edema Vessels: no JVD or carotid bruit Chest: normal inspection of chest Abdomen: normal bowel sounds, soft, nontender, no hepatosplenomegaly Musculoskeletal: no cyanosis or clubbing, extremities motor strength 5/5 Skin: no rashes, warm and dry normal turgor Neurologic: PERRL, EOMI, accommodation nl, no face palsy, no dysarthria CN's II- XI intact bilaterally and moves all extremities Psychiatric: A+Ox3, euthymic affect Lymphatic: no cervical or axillary lymphadenopathy : deferred Results & Data Results & Data ([facility]) Vital Signs (Past 12 Hours) Vital Signs Temp Pulse Pulse Pulse Resp BP Pulse Ox 01/13/22 11:47 36.6 C 61 20 168/72 H 98 01/13/22 08:15 37.2 C 62 19 138/72 98 01/13/22 07:33 46 L 01/13/22 02:44 36.6 C 59 L 18 140/68 99 O2 Del Method 01/13/22 11:47 Room Air 01/13/22 08:15 Room Air 01/13/22 07:33 01/13/22 02:44 Room Air Laboratory Results Laboratory Results WBC 4.19 K/ul (4.8-10.8) L 01/13/22 05:43 RBC 4.31 M/uL (4.63-6.08) L 01/13/22 05:43 Hgb 13.5 g/dl (14.0-18.0) L 01/13/22 05:43 Hct 37.7 % (40.1-51.0) L 01/13/22 05:43 MCV 87.5 fL (80.0-100.0) 01/13/22 05:43 MCH 31.3 pg (25.0-34.0) 01/13/22 05:43 MCHC 35.8 g/dL (32.0-36.0) 01/13/22 05:43 RDW Std Deviation 42.9 fL (36.4-46.3) 01/13/22 05:43 RDW Coeff of Ravi 13.4 % (11.5-14.5) 01/13/22 05:43 Plt Count 151 K/uL (130-400) 01/13/22 05:43 MPV 10.4 fL (9.4-12.4) 01/13/22 05:43 Immature Gran % (Auto) 0.4 % 01/12/22 15:02 Neut % (Auto) 61.8 % 01/12/22 15:02 Lymph % (Auto) 25.6 % 01/12/22 15:02 [place] % (Auto) 10.6 % 01/12/22 15:02 Eos % (Auto) 0.9 % 01/12/22 15:02 Baso % (Auto) 0.7 % 01/12/22 15:02 Neut # (Auto) 3.43 K/uL (1.4-6.5) 01/12/22 15:02 Lymph # (Auto) 1.42 K/uL (1.2-3.4) 01/12/22 15:02 [place] # (Auto) 0.59 K/uL (0.24-0.82) 01/12/22 15:02 Eos # (Auto) 0.05 K/uL (0-0.50) 01/12/22 15:02 Baso # (Auto) 0.04 K/uL (0-0.2) 01/12/22 15:02 Immature Gran # (Auto) 0.02 K/uL (0.00-0.02) 01/12/22 15:02 Sodium 136 mmol/L (136-145) 01/13/22 05:43 Potassium 4.1 mmol/L (3.5-5.1) D 01/13/22 05:43 Chloride 102 mmol/L (98-107) 01/13/22 05:43 Carbon Dioxide 31 mmol/L (21-32) 01/13/22 05:43 Anion Gap 3 (3-11) 01/13/22 05:43 BUN 7 mg/dl (6-23) 01/13/22 05:43 Creatinine 0.79 mg/dl (0.6-1.4) 01/13/22 05:43 Est Cr Clr Drug Dosing 92.7 ml/min 01/13/22 05:43 Est GFR ( Amer) 107.7 ml/min 01/13/22 05:43 Est GFR (Non-Af Amer) 92.9 ml/min 01/13/22 05:43 BUN/Creatinine Ratio 8.9 (10-20) L 01/13/22 05:43 Glucose 98 mg/dl (70-99(Fasting)) 01/13/22 05:43 Calcium 9.5 mg/dl (8.5-10.1) 01/13/22 05:43 Phosphorus 3.8 mg/dl (2.5-4.9) 01/13/22 05:43 Magnesium 1.9 mg/dl (1.7-2.4) 01/13/22 05:43 Total Bilirubin 0.8 mg/dl (0.2-1.0) 01/12/22 15:02 AST 15 U/L (13-39) 01/12/22 15:02 ALT 15 U/L (7-52) 01/12/22 15:02 Alkaline Phosphatase 63 U/L (34-104) 01/12/22 15:02 Total Protein 6.8 gm/dl (6.0-8.3) 01/12/22 15:02 Albumin 4.6 gm/dl (3.4-5.0) 01/12/22 15:02 Globulin 2.2 gm/dl (2.5-4.0) L 01/12/22 15:02 Albumin/Globulin Ratio 2.1 (0.9-2) H 01/12/22 15: Lipase 19 U/L (11-82) 01/12/22 15: TSH 0.106 uIu/ml (0.300-4.500) L 01/13/22 05:43 Free T4 1.23 ng/dl (0.61-1.60) 01/13/22 05:43 Urine Color Yellow 01/12/22 15:02 Urine Appearance Clear (Clear) 01/12/22 15:02 Urine pH 7.0 (4.5-7.5) 01/12/22 15:02 Ur Specific [place] 1.006 (1.000-1.030) 01/12/22 15:02 Urine Protein Negative (Negative) 01/12/22 15:02 Urine Glucose (UA) Negative (Negative) 01/12/22 15:02 Urine Ketones Negative (Negative) 01/12/22 15:02 Urine Blood Negative (Negative) 01/12/22 15:02 Urine Nitrite Negative (Negative) 01/12/22 15:02 Urine Bilirubin Negative (Negative) 01/12/22 15:02 Urine Urobilinogen Negative (Negative) 01/12/22 15:02 Ur Leukocyte Esterase Negative (Negative) 01/12/22 15:02 Urine Osmolality 207 mOsm/kg (500-800) L 01/12/22 15:02 Ur Random Sodium 35 mmol/L 01/12/22 15:02 SARS-CoV-2, RNA, NAAT NEGATIVE (NEGATIVE) 01/12/22 18:48 Impressions Abdomen/Pelvis CT 01/12/22 14:[address] WITH IV CONTRAST CT DOSE: 492.41 mGy.cm HISTORY: lower pelvic pain/ prostate pain sent by pcp TECHNIQUE: Multiaxial CT images of the abdomen and pelvis were performed follo wing the use of intravenous contrast. A dose lowering technique was utilized adhering to the principles of ALARA. COMPARISON STUDY: Abdomen and pelvis CT 05/15/2008. FINDINGS: The lung bases are clear. No pneumoperitoneum. No pneumatosis. Mild to moderate disc space narrowing at L5-S1. No fractures within the visualized osseous structures. There is a small fat-containing umbilical hernia. The liver, gallbladder, spleen, adrenal glands, and pancreas unremarkable. The main portal vein is patent. Normal caliber abdominal aorta with mild calcified plaque. No retroperitoneal or pelvic lymphadenopathy. There is a 9 mm hypodense lesion within the upper pole of the right kidney. This is technically too small to characterize but favors a cyst. There is mild bilateral perinephric edema/fat stranding with subtle heterogeneous enhancement within the kidneys. No hydronephrosis. Mild bladder wall thickening with adjacent fat stranding. This favors a mild cystitis. No bowel wall thickening or obstruction. Colonic diverticulosis. No evidence for acute diverticulitis. Moderate well-formed stool within the majority of the colon. Normal appendix. IMPRESSION: 1. Mild bladder wall thickening with adjacent fat stranding. This likely represents a mild cystitis. Recommend correlation with urinalysis. 2. Mild bilateral perinephric edema/fat stranding with subtle heterogeneous enhancement within the kidneys. This raises the possibility of a superimposed pyelonephritis. This can also be assessed with a urinalysis. 3. No bowel wall thickening or obstruction. 4. Normal appendix. 5. Colonic diverticulosis. No evidence for acute diverticulitis. ACT 112: Negative or not required by law. Electronically signed by: Oneal Zavaleta M.D. 01/12/2022 4:28 PM
[2022-01-13] MEDS: cefTRIAXone SODIUM 2,000 MG in DEXTROSE 5% 50 ML IV SCH (17:28)
[2022-01-13] MEDS: ROSUVASTATIN CALCIUM 10 MG TAB PO SCH (20:41)
[2022-01-13] MEDS: PHENAZOPYRIDINE HCL 200 MG TAB PO PRN (20:42)
[2022-01-13] MEDS: HYDROCODONE/ACETAMOPHEN 5/325MG TAB PO PRN (23:35)
[2022-01-14] MEDS: LEVOTHYROXINE SODIUM 112 MCG TABLET PO SCH (05:30)
[2022-01-14] MEDS: HYDROCODONE/ACETAMOPHEN 5/325MG TAB PO PRN ×2 (07:47→15:45)
--- NOTE | 2022-01-14 08:17 | Urology Consultation ---
Date of Consultation January 14, 2022 Assessment & Plan (1) Cystitis: (2) Lower urinary tract symptoms (LUTS): Plan 66yo M who presented with pelvic discomfort and urinary symptoms. CT a/p on arrival performed and notable for cystitis, mild bilateral perinephric edema/stranding, possibility of superimposed pyelonephritis. Urology consulted for penile pain, possible prostatitis. - Reviewed with Dr. Swift. - Still with discomfort/burning to perineal area, possible underlying inflammatory prostatitis. - Afebrile, hemodynamically stable, non-toxic appearing. - Labs reviewed 01/13- WBC 4.19, Creatinine 0.79 - Urinalysis unremarkable, Urine culture negative. - Continues on IV Ceftriaxone. - Voiding spontaneously, continue to monitor. Bladder scan prn. - Recommend symptom control with prn analgesics, pyridium, and addition of tamsulosin - Continue IV antibiotics for now and can transition to PO for 7-10 days on discharge, can consider doxycycline or cephalexin to avoid interaction with other medications. Can extend antibiotics as needed if still symptomatic after completing course. - Recommend continue Tamsulosin for at least 30 days for possible inflammatory prostatitis. - Continue supportive care. - Will arrange outpatient follow-up with our service. - Urology will follow peripherally. Please contact us with any further questions, concerns, or changes in patient status. Total time includes preparation to see patient including reviewing records, assessing patient, counseling and educating as well as reviewing and assessing most recent lab work, diagnostics, and notes from other providers. Total Time greater than 53 minutes. History of Present Illness Reason for Consultation: Penile pain, prostatitis Attending Physician: Rafael Bingham MD History of Present Illness 66 yo M with past medical history including hypothyroidism, hyperlipidemia, sleep apnea on CPAP, GERD, ankylosing spondylitis on Humira admitted with cystitis, possibly partially treated pyelonephritis. Patient initially presented with pelvic discomfort and difficulty with urination which started approximately 1 week ago. At time of initial onset, he was prescribed oral ciprofloxacin by his PCP. However, he developed tremors and therefore stopped this ciprofloxacin. 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 He had taken approximately 3 days worth. Therefore, he was off the antibiotics, but then developed severe groin pain and presented to the ED. On arrival to ED, a CT a/p was performed and notable for cystitis, mild bilateral perinephric edema/stranding, possibility of superimposed pyelonephritis. Urinalysis was unremarkable. He was admitted for cystitis, possible partially treated pyelonephritis. Urology consulted for penile pain, possible prostatitis. CT abdomen pelvis- 1. Mild bladder wall thickening with adjacent fat stranding. This likely represents a mild cystitis. Recommend correlation with urinalysis. 2. Mild bilateral perinephric edema/fat stranding with subtle heterogeneous enhancement within the kidneys. This raises the possibility of a superimposed pyelonephritis. This can also be assessed with a urinalysis. 3. No bowel wall thickening or obstruction. 4. Normal appendix. 5. Colonic diverticulosis. No evidence for acute diverticulitis. Pt examined at bedside this AM. Awake, standing at bedside on arrival. No acute distress. Still with "achiness and burning" to perineal area. Also reports right lower back pain. He reports the pain seemed to initially improve, but was severe last night. He did have Dilaudid which helped. Today, he notes a slight improvement, had [place] and Pyridium this AM. He denies dysuria and hematuria with urination. Does note a slower/weak stream but feels he is emptying his bladder. Nursing bladder scanned 01/13 for PVR of 72ml. No fevers. Patient is currently on Humira, Celebrex, and Cymbalta and would prefer to continue on his medications while trying to limit any interactions of antibiotics. Does not currently follow with a urologist. Previously seen by Dr. Her >5years ago. Denies hx of prostate, bladder, or kidney cancer or issues. Family hx of prostate cancer - Brother x 2 Reports PCP does CINDY exams. No recent PSA level. Allergies Allergy/AdvReac Type Severity Reaction Status Date / Time morphine Allergy Intermediate GI SYMPTOMS Verified 08/22/21 23:17 Sulfa (Sulfonamide Allergy Intermediate RASH Verified 08/22/21 23:17 Antibiotics) codeine AdvReac Intermediate NAUSEA/VOMI Verified 08/22/21 23:17 TING Home Medications Medication Instructions Recorded Confirmed Type ascorbic acid (vitamin C) 500 mg 500 mg PO QDL 06/16/20 01/12/22 History tablet (Vitamin C) celecoxib 200 mg capsule 200 mg PO QAM 06/16/20 01/12/22 History famotidine 40 mg tablet 20 mg PO AMHS 06/16/20 01/12/22 History hydrochlorothiazide 12.5 mg capsule 12.5 mg PO QAM 06/16/20 01/12/22 History multivitamin 1 tab PO QDL 06/16/20 01/12/22 History rosuvastatin 10 mg tablet 10 mg PO HS 06/16/20 01/12/22 History lorazepam 1 mg tablet 0.5 - 1 mg PO BID PRN Anxiety 08/22/21 01/12/22 History tramadol 50 mg tablet 50 mg PO Q6H PRN Pain, Severe 08/22/21 01/12/22 History adalimumab 40 mg/0.8 mL 40 mg subcut .EVERY 14 DAYS 01/12/22 01/12/22 History subcutaneous pen kit (Humira Pen) azelastine 137 mcg (0.1 %) nasal See Rx Instructions .Route .COMPLEX 01/12/22 01/12/22 History spray aerosol bisacodyl 5 mg tablet 5 mg PO DAILY PRN Constipation 01/12/22 01/12/22 History cholecalciferol (vitamin D3) 50 50 mcg PO DAILY 01/12/22 01/12/22 History mcg (2,000 unit) tablet (Vitamin D3) diclofenac sodium 1 % topical gel 2 g topical QID 01/12/22 01/12/22 History duloxetine 30 mg capsule,delayed 30 mg PO QAM 01/12/22 01/12/22 History release esomeprazole magnesium 20 mg 20 mg PO DAILYBB 01/12/22 01/12/22 History capsule,delayed release ibuprofen 125 mg-acetaminophen 250 2 tab PO HS 01/12/22 01/12/22 History mg tablet (Advil Dual Action) levothyroxine 112 mcg tablet 112 mcg PO DAILYBB 01/12/22 01/12/22 History mometasone 50 mcg/actuation nasal 2 spray intranasal BID 01/12/22 01/12/22 History spray trazodone 50 mg tablet 50 mg PO HS 01/12/22 01/12/22 History Patient History Medical History CMC arthritis GERD (gastroesophageal reflux disease) Hyperlipidemia Hypertension Right calf pain Surgical History H/O meniscectomy of right knee Family History Other Cancer Heart disease Social History Smoking Status: Never smoker Hx Alcohol Use: No Hx Substance Use: No Preferred Language: Hungarian Communication Ability: Effective Trimming [place] Required: No Beliefs That Will Affect Care: None Current Living Situation: Spouse Other Information That Helps Us Care for You: No Feels Safe at Home: Yes Safety Concerns: Feels Safe At This Time Assistive Devices: BiPap and Glasses Review of Systems Review of Systems: All systems reviewed & are unremarkable except as noted in HPI & below Physical Exam Constitutional: cooperative; no acute distress Eyes: PERRL, conjunctivae normal, anicteric sclerae ENMT: external ear and nose normal, oropharynx normal Neck: normal visual inspection Respiratory: no respiratory distress and no labored breathing Musculoskeletal: Head/Neck/Chest: normocephalic Skin: No visible rashes or lesions Neurologic: moves all extremities and awake Psychiatric: A+Ox3, euthymic affect Genitourinary: no penis abnormality, no scrotum abnormality, no external erythema, no external tenderness and no edema Results & Data ([facility]) Vital Signs (Past 12 Hours) Vital Signs Temp Pulse Pulse Pulse Resp BP BP 01/14/22 08:12 56 L 01/14/22 07:04 36.9 C 70 18 158/75 H 01/14/22 04:26 35.8 C L 66 18 162/72 H 01/14/22 01:16 52 L 01/13/22 23:30 36.9 C 64 18 156/65 H Pulse Ox O2 Del Method 01/14/22 08:12 01/14/22 07:04 98 Room Air 01/14/22 04:26 99 Room Air 01/14/22 01:16 01/13/22 23:30 96 Room Air PG Care Time/CCT Total # of Minutes Spent Total Time Spent with Patient: Total time spent is greater than 50% in coordination of care (as documented) at patient's floor/unit and/or counseling patient: Coding Level of Care Code 25925 Initial Inpt Care Lvl 2 Diagnoses Cystitis N30.90 Lower urinary tract symptoms (LUTS) R39.9 Time Spent (min) 53
[2022-01-14] MEDS: FAMOTIDINE 20 MG TAB PO SCH ×2 (09:01→21:42)
[2022-01-14] MEDS: DULoxetine HCL 30 MG CAP PO SCH (09:01)
[2022-01-14] MEDS: CeleBREX 200 MG CAP PO SCH (09:01)
[2022-01-14] MEDS: PHENAZOPYRIDINE HCL 200 MG TAB PO PRN ×2 (09:02→13:20)
[2022-01-14] MEDS: TAMSULOSIN HCL 0.4 MG CAP PO SCH (13:20)
--- NOTE | 2022-01-14 15:00 | Hospitalist Progress Note ---
Date of Service January 14, 2022 Assessment & Plan (1) Cystitis: Plan: Poss. partially treated pyelonephritis Inflammatory prostatitis Pt presented with severe suprapubic tenderness Previously treated with ciprofloxacin, took for 3 days UA currently negative, however CT abdomen pelvis concerning for cystitis, pyelonephritis Urine culture shows no growth. Plan; Urology recommendation appreciated; recommend symptom control with as needed analgesics, pyridium and tamsulosin. Also recommend to continue IV antibiotics for now and transition to p.o. antibiotics on discharge. Ankylosing spondylitis -Follows with rheumatology, Dr. Vanegas -Started Humira in November, next dose planned for January 16 Hyponatremia likely secondary to hydrochlorothiazide -Improved to 136 -Resume hydrochlorothiazide and monitor BMP Hypokalemia -Replace and monitor Hypothyroidism Suppressed TSH with normal T4. Will decrease his dose to 100 mcg on discharge. Follow-up as outpatient HLD - cont. home statin Anxiety/ Depression -Patient just started on Cymbalta -Per it has been helpful, and wish to continue this medication RAHEEM on CPAP - to bring home cpap Admission and Anticipated Discharge Date Admission Date: January 12, 2022 Subjective Patient seen and examined at bedside. He had an episode of pain in his perineal region. He reports that his urinary stream is poor as well. He has been afebrile since admission. Review of Systems Review of Systems: All systems reviewed & are unremarkable except as noted in Subjective Physical Exam Physical Exam: Constitutional: WD/WN, vitals as above, NAD, sitting up in bed, pleasant, conversing easily Respiratory: normal respiratory effort, lungs clear to auscultation, no wheeze, rales, rhonchi. Normal insp/exp effort, no accessory muscle use Cardiovascular: RRR, no murmur, no edema Vessels: no JVD or carotid bruit Chest: normal inspection of chest Abdomen: normal bowel sounds, soft, nontender, no hepatosplenomegaly Musculoskeletal: no cyanosis or clubbing, extremities motor strength 5/5 Skin: no rashes, warm and dry normal turgor Neurologic: PERRL, EOMI, accommodation nl, no face palsy, no dysarthria CN's II- XI intact bilaterally and moves all extremities Psychiatric: A+Ox3, euthymic affect Lymphatic: no cervical or axillary lymphadenopathy : deferred Results & Data Results & Data ([facility]) Vital Signs (Past 12 Hours) Vital Signs Temp Pulse Pulse Pulse Resp BP BP 01/14/22 14:37 36.6 C 65 18 148/70 H 01/14/22 11:00 36.6 C 69 18 161/68 H 01/14/22 08:12 56 L 01/14/22 07:04 36.9 C 70 18 158/75 H 01/14/22 04:26 35.8 C L 66 18 162/72 H Pulse Ox O2 Del Method 01/14/22 14:37 100 Room Air 01/14/22 11:00 96 Room Air 01/14/22 08:12 01/14/22 07:04 98 Room Air 01/14/22 04:26 99 Room Air Laboratory Results Laboratory Results WBC 4.19 K/ul (4.8-10.8) L 01/13/22 05:43 RBC 4.31 M/uL (4.63-6.08) L 01/13/22 05:43 Hgb 13.5 g/dl (14.0-18.0) L 01/13/22 05:43 Hct 37.7 % (40.1-51.0) L 01/13/22 05:43 MCV 87.5 fL (80.0-100.0) 01/13/22 05:43 MCH 31.3 pg (25.0-34.0) 01/13/22 05:43 MCHC 35.8 g/dL (32.0-36.0) 01/13/22 05:43 RDW Std Deviation 42.9 fL (36.4-46.3) 01/13/22 05:43 RDW Coeff of Ravi 13.4 % (11.5-14.5) 01/13/22 05:43 Plt Count 151 K/uL (130-400) 01/13/22 05:43 MPV 10.4 fL (9.4-12.4) 01/13/22 05:43 Immature Gran % (Auto) 0.4 % 01/12/22 15:02 Neut % (Auto) 61.8 % 01/12/22 15:02 Lymph % (Auto) 25.6 % 01/12/22 15:02 Hart % (Auto) 10.6 % 01/12/22 15:02 Eos % (Auto) 0.9 % 01/12/22 15:02 Baso % (Auto) 0.7 % 01/12/22 15:02 Neut # (Auto) 3.43 K/uL (1.4-6.5) 01/12/22 15:02 Lymph # (Auto) 1.42 K/uL (1.2-3.4) 01/12/22 15:02 Hart # (Auto) 0.59 K/uL (0.24-0.82) 01/12/22 15:02 Eos # (Auto) 0.05 K/uL (0-0.50) 01/12/22 15:02 Baso # (Auto) 0.04 K/uL (0-0.2) 01/12/22 15:02 Immature Gran # (Auto) 0.02 K/uL (0.00-0.02) 01/12/22 15:02 Sodium 136 mmol/L (136-145) 01/13/22 05:43 Potassium 4.1 mmol/L (3.5-5.1) D 01/13/22 05:43 Chloride 102 mmol/L (98-107) 01/13/22 05:43 Carbon Dioxide 31 mmol/L (21-32) 01/13/22 05:43 Anion Gap 3 (3-11) 01/13/22 05:43 BUN 7 mg/dl (6-23) 01/13/22 05:43 Creatinine 0.79 mg/dl (0.6-1.4) 01/13/22 05:43 Est Cr Clr Drug Dosing 92.7 ml/min 01/13/22 05:43 Est GFR ( Amer) 107.7 ml/min 01/13/22 05:43 Est GFR (Non-Af Amer) 92.9 ml/min 01/13/22 05:43 BUN/Creatinine Ratio 8.9 (10-20) L 01/13/22 05:43 Glucose 98 mg/dl (70-99(Fasting)) 01/13/22 05:43 Calcium 9.5 mg/dl (8.5-10.1) 01/13/22 05:43 Phosphorus 3.8 mg/dl (2.5-4.9) 01/13/22 05:43 Magnesium 1.9 mg/dl (1.7-2.4) 01/13/22 05:43 Total Bilirubin 0.8 mg/dl (0.2-1.0) 01/12/22 15:02 AST 15 U/L (13-39) 01/12/22 15:02 ALT 15 U/L (7-52) 01/12/22 15:02 Alkaline Phosphatase 63 U/L (34-104) 01/12/22 15:02 Total Protein 6.8 gm/dl (6.0-8.3) 01/12/22 15:02 Albumin 4.6 gm/dl (3.4-5.0) 01/12/22 15:02 Globulin 2.2 gm/dl (2.5-4.0) L 01/12/22 15: Albumin/Globulin Ratio 2.1 (0.9-2) H 01/12/22 15: Lipase 19 U/L (11-82) 01/12/22 15:02 TSH 0.106 uIu/ml (0.300-4.500) L 01/13/22 05:43 Free T4 1.23 ng/dl (0.61-1.60) 01/13/22 05:43 Urine Color Yellow 01/12/22 15:02 Urine Appearance Clear (Clear) 01/12/22 15:02 Urine pH 7.0 (4.5-7.5) 01/12/22 15:02 Ur Specific [place] 1.006 (1.000-1.030) 01/12/22 15:02 Urine Protein Negative (Negative) 01/12/22 15:02 Urine Glucose (UA) Negative (Negative) 01/12/22 15: Urine Ketones Negative (Negative) 01/12/22 15:02 Urine Blood Negative (Negative) 01/12/22 15:02 Urine Nitrite Negative (Negative) 01/12/22 15:02 Urine Bilirubin Negative (Negative) 01/12/22 15:02 Urine Urobilinogen Negative (Negative) 01/12/22 15:02 Ur Leukocyte Esterase Negative (Negative) 01/12/22 15:02 Urine Osmolality 207 mOsm/kg (500-800) L 01/12/22 15:02 Ur Random Sodium 35 mmol/L 01/12/22 15:02 SARS-CoV-2, RNA, NAAT NEGATIVE (NEGATIVE) 01/12/22 18:48 Impressions Abdomen/Pelvis CT 01/12/22 14:[address] WITH IV CONTRAST CT DOSE: 492.41 mGy.cm HISTORY: lower pelvic pain/ prostate pain sent by pcp TECHNIQUE: Multiaxial CT images of the abdomen and pelvis were performed following the use of intravenous contrast. A dose lowering technique was utilized adhering to the principles of ALARA. COMPARISON STUDY: Abdomen and pelvis CT 05/15/2008. FINDINGS: The lung bases are clear. No pneumoperitoneum. No pneumatosis. Mild to moderate disc space narrowing at L5-S1. No fractures within the visualized osseous structures. There is a small fat-containing umbilical hernia. The liver, gallbladder, spleen, adrenal glands, and pancreas unremarkable. The main portal vein is patent. Normal caliber abdominal aorta with mild calcified plaque. No retroperitoneal or pelvic lymphadenopathy. There is a 9 mm hypodense lesion within the upper pole of the right kidney. This is technically too small to characterize but favors a cyst. There is mild bilateral perinephric edema/fat stranding with subtle heterogeneous enhancement within the kidneys. No hydronephrosis. Mild bladder wall thickening with adjacent fat stranding. This favors a mild cystitis. No bowel wall thickening or obstruction. Colonic diverticulosis. No evidence for acute diverticulitis. Moderate well-formed stool within the majority of the colon. Normal appendix. IMPRESSION: 1. Mild bladder wall thickening with adjacent fat stranding. This likely represents a mild cystitis. Recommend correlation with urinalysis. 2. Mild bilateral perinephric edema/fat stranding with subtle heterogeneous enhancement within the kidneys. This raises the possibility of a superimposed pyelonephritis. This can also be assessed with a urinalysis. 3. No bowel wall thickening or obstruction. 4. Normal appendix. 5. Colonic diverticulosis. No evidence for acute diverticulitis. ACT 112: Negative or not required by law. Electronically signed by: Oneal Zavaleta M.D. 01/12/2022 4:28 PM
[2022-01-14] MEDS: cefTRIAXone SODIUM 2,000 MG in DEXTROSE 5% 50 ML IV SCH (16:44)
[2022-01-14] MEDS: ROSUVASTATIN CALCIUM 10 MG TAB PO SCH (21:43)
[2022-01-14] MEDS: ACETAMINOPHEN 325 MG TAB PO PRN (23:08)
[2022-01-15] MEDS: ACETAMINOPHEN 325 MG TAB PO PRN (06:15)
[2022-01-15 06:22] LABS: Basophils # (auto) 0.08 K/uL (0-0.2); Basophils % (auto) 1.7 %; Eosinophils # (auto) 0.19 K/uL (0-0.50); Eosinophils % (auto) 4.1 %; Hematocrit (blood only) 42.4 % (40.1-51.0); Hemoglobin 14.7 g/dl (14.0-18.0); Immature Granulocytes # (auto) 0.01 K/uL (0.00-0.02); Immature Granulocytes % (auto) 0.2 %; Lymphocytes # (auto) 1.59 K/uL (1.2-3.4); Lymphocytes % (auto) 34.1 %; Mean Corpuscular Hemoglobin 30.5 pg (25.0-34.0); Mean Corpuscular Hgb Conc 34.7 g/dL (32.0-36.0); Mean Platelet Volume 10.4 fL (9.4-12.4); Monocytes # (auto) 0.55 K/uL (0.24-0.82); Monocytes % (auto) 11.8 %; Neutrophils # (auto) 2.24 K/uL (1.4-6.5); Neutrophils % (auto) 48.1 %; Platelet Count 177 K/uL (130-400); RDW Coefficient of Variation 13.6 % (11.5-14.5); RDW Standard Deviation 44.1 fL (36.4-46.3); Red Blood Count 4.82 M/uL (4.63-6.08); White Blood Count 4.66 K/ul (4.8-10.8)
[2022-01-15] MEDS ORDERED: LEVOTHYROXINE SODIUM 100 MCG TABLET PO SCH (06:30)
[2022-01-15 06:42] LABS: BUN Creatinine Ratio 15.6 (10-20); Calcium 9.9 mg/dl (8.5-10.1); Est GFR (African American) 108.8 ml/min; Est GFR (Non-African American) 93.9 ml/min
[2022-01-15] MEDS: DULoxetine HCL 30 MG CAP PO SCH (08:14)
[2022-01-15] MEDS: TAMSULOSIN HCL 0.4 MG CAP PO SCH (08:14)
[2022-01-15] MEDS: FAMOTIDINE 20 MG TAB PO SCH (08:14)
[2022-01-15] MEDS: CeleBREX 200 MG CAP PO SCH (08:14)
[2022-01-15] MEDS ORDERED: hydroCHLOROthiazide 25 MG TAB PO SCH (09:00)
--- NOTE | 2022-01-15 17:24 | Discharge Summary ---
Date of Service January 15, 2022 Admission HPI Per Admitting Provider Mr. Couch is a 66 yo M w/ hypothyroidism, hyperlipidemia, sleep apnea on CPAP, GERD, ankylosing spondylitis on Humira, who presents with groin pain, and urinary symptoms. Patient first had some pelvic discomfort and difficulty with urination about a week ago. At that time he was prescribed p.o. ciprofloxacin. He took ciprofloxacin for 3 days, and then developed tremors. Therefore he stopped the medication. 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 Patient follows with rheumatology for ankylosing spondylitis, and recently started on Humira. He had his first injection in November, and he is due January 16 again. He was then off antibiotics, however now developed severe "groin pain". Denies any fevers or chills, chest pain shortness of breath, abdominal pain, nausea vomiting or diarrhea. He has difficulty with starting urination. In the ED UA was obtained and not consistent with UTI, however CT abdomen pelvis was also obtained and is concerning for cystitis, pyelonephritis. Patient was started on IV ceftriaxone. In the ED patient was also found to have low sodium level at 128 and he was given IV normal saline. Lastly patient does have anxiety/depression and recently was started on Cymbalta. Per , this medication has been helpful and she would like us to continue this med while inpt. Admission Exam Per Admitting Provider Constitutional: WD/WN, vitals as above Eyes: PERRL, conjunctivae normal, anicteric sclerae ENMT: external ear and nose normal, oropharynx normal Neck: trachea midline, no thyromegaly Respiratory: normal respiratory effort, lungs clear to auscultation Cardiovascular: RRR, no murmur, no edema Chest (Breasts): Chest: normal inspection of chest Gastrointestinal (Abdomen): normal bowel sounds, soft, nontender, no hepatosplenomegaly (+ suprapubic tenderness) Musculoskeletal: no cyanosis or clubbing, extremities motor strength 5/5 Skin: no rashes, warm and dry Neurologic: PERRL, EOMI, accommodation nl, no face palsy, no dysarthria Psychiatric: A+Ox3, euthymic affect Genitourinary: no CVA tenderness (+ suprapubic tenderness) Lymphatic: no lymphedema Principal Diagnosis Cystitis Inflammatory prostatitis Hyponatremia Discharge Exam Constitutional: WD/WN, vitals as above, NAD, sitting up in bed, pleasant, conversing easily Respiratory: normal respiratory effort, lungs clear to auscultation, no wheeze, rales, rhonchi. Normal insp/exp effort, no accessory muscle use Cardiovascular: RRR, no murmur, no edema Vessels: no JVD or carotid bruit Chest: normal inspection of chest Abdomen: normal bowel sounds, soft, nontender, no hepatosplenomegaly Musculoskeletal: no cyanosis or clubbing, extremities motor strength 5/5 Skin: no rashes, warm and dry normal turgor Neurologic: PERRL, EOMI, accommodation nl, no face palsy, no dysarthria CN's II- XI intact bilaterally and moves all extremities Psychiatric: A+Ox3, euthymic affect Lymphatic: no cervical or axillary lymphadenopathy : deferred Discharge Data Allergies Allergy/AdvReac Type Severity Reaction Status Date / Time morphine Allergy Intermediate GI SYMPTOMS Verified 08/22/21 23:17 Sulfa (Sulfonamide Allergy Intermediate RASH Verified 08/22/21 23:17 Antibiotics) codeine AdvReac Intermediate NAUSEA/VOMI Verified 08/22/21 23:17 TING Consultations 01/12/22 17:27 ED Decision to Admit Stat 01/14/22 07:25 Consult Urology Routine Ordered Studies 01/12/22 14:51 CT Abd and Pelvis [CT abd pelvis IV con only] Stat Hospital Course (1) Cystitis: Plan Mr. Couch is a 66 yo M w/ hypothyroidism, hyperlipidemia, sleep apnea on CPAP, GERD, ankylosing spondylitis on Humira, who presents with groin pain, and urinary symptoms. He reported pelvic discomfort and difficulty in urination 1 week before. He was initially placed on ciprofloxacin for 3 days; developed tremors and was discontinued. On presentation to the ED, he was afebrile, normotensive and saturating well in room air. CT abdomen and pelvis was done which showed mild bladder wall thickening and possible superimposed pyelone phritis. His urinalysis was unremarkable. Patient was admitted to telemetry floor for further care. He was started on IV antibiotics and pain control. Urology was consulted due to persistent pain. Patient's symptoms were thought to arise from inflammatory prostatitis for which he was recommended to be started on tamsulosin, pyridium and continuing the antibiotic. Patient was discharged on course of Keflex for 7 days, tamsulosin pain control with Busby, pyridium. Urology will set up follow-up appointment for him. During his lab work, his TSH was found to be suppressed with slightly elevated free T4. He was on levothyroxine 112 mcg/day; he was asked to take levothyroxine for 6 days a week and skip one day. He was asked to follow up on thyroid function test in 6 weeks with PCP. He was also found to have hyponatremia on presentation which improved with IV fluids. He was asked to get a follow-up CBC and BMP in 1 week with his primary care doctor. The discharge instruction were given to his at bedside as well. Total Time Total Time Spent Total Time Spent (In Minutes): 35 Discharge Plan Discharge Items Patient Disposition: Home - Self-Care Reason For Visit: ABDOMINAL PAIN,URINARY SYMPTOMS Discharge Diagnosis: Inflammatory prostatitis Cystitis Hyponatremia Activity: Resume your previous activity Non-emergency contact: Primary Care Provider Call non-emergency contact if: you have any medication questions and your symptoms worsen Follow-up/Referrals: Evangelista Timmons MD [Outside Practitioners] - (Date & Time 01/24/2022 1:00 PM Provider Evangelista Timmons MD Department Urology [facility] ) Abhay Lopez MD [Primary Care Provider] - (Date & Time 01/21/2022 11:00 AM Provider Abhay Lopez III, MD Department [facility] ) Diet: Regular Addtl Attending Provider Instructions: You were admitted to the hospital and found to have cystitis and inflammatory prostatitis. Please follow the following direction: 1) Take cephalexin ( Antibiotic)500 mg twice daily for next 7 days. 2) Take tamsulosin 0.5 mg once daily for 30 days 3) If you have pain; take Tylenol first. If Tylenol is not able to resolve the pain in 1 hour; take 1 tablet of Busby as needed. You are also prescribed by Pyridine 200 mg; you can take it up to 3 times daily as needed for 2 days for pain. 4) you will have follow-up with urology as outpatient. During you lab work in the hospital; your TSH was found to be 0.106 with T4 of 1.23. Please take 112 mcg of levothyroxine 6 times a week and is skip for one day a week. You will need repeat TSH and free T4 done in 6 weeks time. Discussed with her primary care doctor regarding it. You are also found to have low sodium(128) during her lab work. It improved to 137 at discharge. Please repeat blood work with CBC and BMP in 1 week time. Please continue to take your other medication as prescribed before. Pending Studies at Discharge: No Stand-Alone Forms: [facility], Smoking Cessation Medications and DC Order Prescriptions: New phenazopyridine [Pyridium] 200 mg Tablet 200 mg PO TID PRN (Reason: pain) 2 Days Qty: 6 0RF tamsulosin 0.4 mg Capsule 0.4 mg PO QAM Qty: 30 0RF hydrocodone-acetaminophen 5-325 mg Tablet 1 tab PO Q12 PRN (Reason: pain) Qty: 5 0RF cephalexin 500 mg capsule 500 mg PO BID 7 Days Qty: 14 0RF Continued tramadol 50 mg tablet 50 mg PO Q6H PRN (Reason: Pain, Severe) lorazepam 1 mg tablet 0.5 - 1 mg PO BID PRN (Reason: Anxiety) duloxetine 30 mg capsule,delayed release(DR/EC) 30 mg PO QAM trazodone 50 mg tablet 50 mg PO HS esomeprazole magnesium 20 mg capsule,delayed release(DR/EC) 20 mg PO DAILYBB cholecalciferol (vitamin D3) [Vitamin D3] 50 mcg (2,000 unit) Tablet 50 mcg PO DAILY mometasone 50 mcg/actuation spray,non-aerosol 2 spray INTRANASAL BID Rx Instructions: 2 squirts each nostril ywic a day. May use in conjunction with Astelin spray Advil Dual Action 125-250 mg Tablet 2 tab PO HS levothyroxine 112 mcg tablet 112 mcg PO DAILYBB Rx Instructions: take at least 30 minutes prior to breakfast or other meds Humira Pen 40 mg/0.8 mL pen injector kit 40 mg SUBCUT .EVERY 14 DAYS azelastine 137 mcg (0.1 %) aerosol,spray See Rx Instructions .ROUTE .COMPLEX Rx Instructions: intranasally as directed bisacodyl 5 mg Tablet 5 mg PO DAILY PRN (Reason: Constipation) diclofenac sodium 1 % Gel 2 g TOPICAL QID multivitamin Tablet 1 tab PO QDL celecoxib 200 mg capsule 200 mg PO QAM famotidine 40 mg tablet 20 mg PO AMHS Rx Instructions: 1/2 tablet dose ascorbic acid (vitamin C) [Vitamin C] 500 mg Tablet 500 mg PO QDL hydrochlorothiazide 12.5 mg capsule 12.5 mg PO QAM rosuvastatin 10 mg tablet 10 mg PO HS Discharge Orders: Discharge Order (Routine); Ordered 01/15/22 Ordered By: Rafael Bingham Admission Data Admit Date/Time: 01/12/22 17:39 Attending Provider: Rafael Bingham Admit Provider: Servando Weller Primary Care Provider: Abhay Lopez Other Providers: Servando Weller ; Ke Swift Other Interventions: Discharge Summary Assessment (RN) Last Done: 01/15/22 12:47
== END 2022-01-15 13:48 | disposition home or self-care (01) | DRG 728 ==
LOC: ED 14:16 → 2N 17:39 → SUATTDRO 17:39 → 2N 20:35
DX: Z88.5 Allergy status to narcotic agent; Z88.2 Allergy status to sulfonamides; E87.6 Hypokalemia; N41.9 Inflammatory disease of prostate, unspecified; K21.9 Gastro-esophageal reflux disease without esophagitis; G47.33 Obstructive sleep apnea (adult) (pediatric); Z79.890 Hormone replacement therapy; I10 Essential (primary) hypertension; F41.8 Other specified anxiety disorders; E87.1 Hypo-osmolality and hyponatremia; N30.90 Cystitis, unspecified without hematuria; E78.5 Hyperlipidemia, unspecified; M45.9 Ankylosing spondylitis of unspecified sites in spine